=== PATIENT | male | born 1975 | race Caucasian/White ===

== ENCOUNTER → 2022-06-10 | Outpatient (REF) | payer OTHER | LOC: M SFHCDERM 14:28 | PROVIDERS: ATTEND Nurse Practitioner Family | DX: S60.522A Blister (nonthermal) of left hand, initial encounter (principal); L57.0 Actinic keratosis; X58.XXXA Exposure to other specified factors, initial encounter; Y92.9 Unspecified place or not applicable; Y99.9 Unspecified external cause status; Y93.9 Activity, unspecified ==